=== PATIENT | female | born 1965 | race Caucasian/White ===

== ENCOUNTER 2025-05-05 09:36 | Outpatient (CLI) | payer MEDICAID ==
[~2025-05-05 09:36] MED LIST: HYDR-4353 PO; NO HOME MEDS; ONDA4TAB6 PO
[2025-05-05] MEDS ORDERED: iohexol 300mg/ml 100ml inj. ONE (10:09)
--- NOTE | 2025-05-05 18:08 | RADIOLOGY REPORT ---
Exam: CT CT ABDOMEN PELVIS W/ IV CONTRAST History: ABDOMINAL PAIN COMPARISON: None Technique: Multidetector spiral CT of the abdomen and pelvis was performed from lung bases to pubic symphysis. Intravenous contrast was administered during this examination. Portal venous imaging was obtained. Axial, coronal and sagittal multiplanar reformats were performed by the technologist on a separate workstation. Radiation Dose : Abdomen/Pelvis: CTDIvol 29 mGy, DLP 1470 mGy*cm. CONTRAST: Type of contrast: Omni 300 Contrast injected: 100 mL Findings: Lung Bases: No acute or significant lung base finding. Normal heart size. No pleural or pericardial effusion. Liver: Few hepatic cysts, largest in the dome of the liver measures up to 33 mm. Gallbladder and biliary Tree: Unremarkable Spleen: Calcified granuloma. Pancreas: The pancreas is normal in appearance without focal lesions or abnormal enhancement. Adrenal Glands: Unremarkable Kidneys: Right renal cyst. No hydronephrosis. Bladder: Unremarkable Bowel: The stomach is grossly normal in appearance. Small bowel and colon are normal in caliber and d istribution. Normal appendix is visualized in the right lower quadrant without findings of appendicit is. Ascites: Absent Lymphadenopathy: No mesenteric, retroperitoneal or periportal lymphadenopathy. Abdominal wall and Mesentery: Unremarkable. Vasculature: The visualized abdominal aorta is normal in size and caliber. Abdominal and pelvic vess els demonstrate normal enhancement. Pelvic Organs: Unremarkable Musculoskeletal: No aggressive focal bony lesions, acute fractures or dislocation. IMPRESSION: 1. No acute abdominal or pelvic finding. Hepatic cysts. Right renal cyst. Radiation optimization: All CT scans at this facility use at least one of these dose optimization diane hniques: Automated exposure control mA and/or kV adjustment per patient size (includes targeted exams where dose is matched to clinical indication) or iterative reconstruction. HS:Y
== END 2025-05-05 23:59 | disposition home or self-care (01) ==
LOC: RAD 09:36
PROVIDERS: ATTEND Family Medicine
DX: K76.89 Other specified diseases of liver (principal); R10.9 Unspecified abdominal pain; N28.1 Cyst of kidney, acquired
CPT/HCPCS: 74177; Q9967

== ENCOUNTER 2025-06-30 20:42 | Emergency (ER) | payer MEDICAID ==
[~2025-06-30] VITALS: Ht 182.9 cm; Wt 91.5 kg
[2025-06-30 20:59] VITALS: BP 160/72; PULSE 82; RESP 16; TEMP 97.6; O2SAT 96
--- NOTE | 2025-06-30 23:09 | Physician Documentation ---
History of Present Illness ~ Chief Complaint: Edema Stated Complaint: SWELLING OF THE EXTREMETIES Time Seen by MD: 00:40 Primary Medical Doctor: [facility] HPI Patient reports that she woke up Monday morning with edema throughout her body that has progressed over the last day. Patient reports her hands neck chest back legs and feet are all swollen. She denies any new medication traumatic injuries allergic reactions or any new exposures. Patient reports that her neck hurts to turn from side to side. Denies any C-spine tenderness and is able to put her chin to her chest without difficulty. Patient reports that even the tissue of her lower back feels edematous. Medication Reconciliation Allergies: Coded Allergies: No Known Allergies (Unverified , 06/13/12) Scheduled Hydrocodone Bit/Acetaminophen ([place] 10-325 Tablet), 1 TAB PO Q6H Scheduled PRN Ondansetron Hcl (Zofran), 1 TABLET PO Q8H PRN for NAUSEA Miscellaneous Medications Home Med List (No Home Medications), (Reported) Past Medical History Past Medical History: , *MUSCULOSKELETAL* Past Surgical History: no surgical history Alcohol Use: None Drug Use: none Lives with: Spouse Lives In: Home Occupation: employed Review of Systems ROS As stated above in the HPI, otherwise all systems are reviewed and negative. Physical Exam Vital Signs: Temperature: 97.6, Heart Rate: 82, Respiratory Rate: 16, BP: 160/72, Pulse Oximetry: 96, Weight: 91.500 Oxygen Flow Rate: 0 General Appearance VITALS: Reviewed and as above. GENERAL: Alert, no apparent distress. HEENT: Normocephalic, atraumatic, PERRL, EOMI, dry mucosa, no erythema RESPIRATORY: Lungs clear, normal breath sounds, no respiratory distress. CHEST: No accessory muscle use, no retractions CV: Regular rate, rhythm, no edema, no murmur, No: JVD GI: Soft, non-tender, bowels sounds present, no rebound, guarding, or rigidity BACK: No CVA tenderness, or swelling MUSCULOSKELETAL No deformities, no edema throughout body. SKIN: Warm and dry, no rash, edema noted throughout upper extremities lower extremities face neck and back NEURO: Oriented x4, No motor or sensory deficit PSYCH: Normal mood and affect, no agitation Progress Results/Orders Results/Orders Vital Signs 06/30/25 20:59 Temp 97.6 Pulse 82 Resp 16 B/P (MAP) 160/72 Pulse Ox 96 O2 Flow Rate 0 Laboratory Tests Test 06/30/25 23:09 07/01/25 00:05 White Blood Count 5.4 Red Blood Count 4.14 L Hemoglobin 11.5 L Hematocrit 33.9 L Mean Corpuscular Volume 81.9 Mean Corpuscular Hemoglobin 27.8 Mean Corpuscular Hemoglobin Concent 33.9 Red Cell Distribution Width 13.2 Platelet Count 269 Mean Platelet Volume 7.9 Neutrophils (%) (Auto) 68.6 Lymphocytes (%) (Auto) 19.9 L Monocytes (%) (Auto) 7.6 Eosinophils (%) (Auto) 3.3 Basophils (%) (Auto) 0.6 Neutrophils # (Auto) 3.7 Lymphocytes # (Auto) 1.1 Monocytes # (Auto) 0.4 Eosinophils # (Auto) 0.2 Basophils # (Auto) 0.0 CBC Comment Erythrocyte Sedimentation Rate 10 Sodium Level 141 Potassium Level 3.4 L Chloride Level 105 Carbon Dioxide Level 28.2 Anion Gap 8 Blood Urea Nitrogen 26 H Creatinine 1.13 H Estimated GFR/1.73 m2 49 BUN/Creatinine Ratio 23.0 H Glucose Level 139 H Calcium Level 8.6 Total Bilirubin 0.5 Aspartate Amino Transf (AST/SGOT) 16 Alanine Aminotransferase (ALT/SGPT) 33 Alkaline Phosphatase 84 C-Reactive Protein 1.16 H Pro-B-Type Natriuretic Peptide 57 Total Protein 6.9 Albumin 3.7 Globulin 3.2 Albumin/Globulin Ratio 1.2 Chemistry Comments Urine Specimen Description Cln catch midstream Urine Color Yellow Urine Clarity Cloudy Urine pH 5.5 Urine Specific [place] >=1.030 Urine Protein Trace Urine Glucose (UA) Negative Urine Ketones Trace H Urine Occult Blood Negative Urine Nitrite Negative Urine Bilirubin Negative Urine Urobilinogen 0.2 Urine Leukocyte Esterase Negative Urine RBC 10-20 Urine WBC 0-4 Urine Squamous Epithelial Cells Few Urine Calcium Oxalate Crystals 3+ Urine Bacteria 1+ Urine Mucus Many Urine Culture Indicated Not ind Volume Urine Centrifuged 10 ml Urine Comment Medical Decision Making Findings Patient presented to the emergency room with generalized arthritis as per HPI. Differentials include but are not limited to lymphoma, reactive arthritis, rheumatoid arthritis, viral syndrome, congestive heart failure, renal failure nephrotic syndrome nephritic syndrome therefore emergent labs and imaging indicated. Labs reassuring. No evidence of acute cardiac or kidney injury. Given patient's symmetrical arthritis of acute onset I suspect reactive arthritis. Conservative management discussed as well as the need to follow up with her doctor for resolution of symptoms. Departure Disposition: HOME / SELF CARE / HOMELESS Impression: Primary Impression: Reactive arthritis Condition: Stable Discharge Instructions: Reactive Arthritis Additional Instructions: [id number] anti-inflammatory such as ibuprofen can be safely taken with Tylenol for your discomfort. Referrals: NO PRIMARY CARE PROVIDER (PCP) Signature Scribe Signature: No scribe Attestation: The note accurately reflects work and decisions made by me.Timothy Paul MD 07/01/25 00:53 MICHAEL FLOREZ Jun 30, 2025 23:09 TIMOTHY PAUL MD Jul 01, 2025 00:53
[2025-06-30 23:15] LABS: MEAN PLATELET VOLUME 7.9 FL (7.4-10.4); RED CELL DISTRIBUTION WIDTH 13.2 % (11.5-14.5)
[2025-06-30 23:30] LABS: CREATININE 1.13 MG/DL (0.40-0.90); TOTAL CARBON DIOXIDE 28.2 MMOL/L (24-32); eCRCL 62 ML/MIN; eGFR 49 ML/MIN
--- NOTE | 2025-06-30 23:34 | RADIOLOGY REPORT ---
CHEST RADIOGRAPH Indication: edema Technique: Frontal and lateral view of the chest was obtained Comparison: None FINDINGS: Lines and Tubes: None Lungs: Probable mild interstitial pulmonary edema. Pleura: No effusion. No pneumothorax. Cardiomediastinal contours: Unremarkable Bones: Unremarkable IMPRESSION: 1. Probable mild interstitial pulmonary edema.
[2025-06-30 23:37] LABS: PRO BRAIN NATRIURETIC PEPTIDE 57 PG/ML (0-125)
[2025-07-01 00:23] LABS: LEUKOCYTE ESTERASE ,URINE NEGATIVE (Neg); NITRITES, URINE NEGATIVE (Neg); OCCULT BLOOD,URINE NEGATIVE (Neg)
[2025-07-01 00:25] LABS: UA COLLECTION TYPE CLN CATCH MIDSTREAM
[2025-07-01 00:36] LABS: MUCUS STRANDS MANY /LPF (Neg); SQUAMOUS EPITHELIAL CELL,UR FEW /LPF (FEW)
[2025-07-01 00:38] LABS: CAL OXALATE CRYSTALS 3+ /HPF (NEGATIVE)
[2025-07-01] MEDS: ketorolac trometh 15mg/ml vial 15 MG/ML ML IM ONE (01:03)
== END 2025-07-01 01:36 | disposition home or self-care (01) ==
LOC: ER 20:43
DX: M02.30 Reiter's disease, unspecified site (principal); R06.02 Shortness of breath
CPT/HCPCS: 36415; 71046; 80053; 81001; 83880; 85025; 85651; 86140; 96372; 99284; J1885